=== PATIENT | male | born 1990 | race Caucasian/White ===

== ENCOUNTER 2017-08-11 22:43 | Emergency (ER) | payer OTHER, SELFPAY ==
[2017-08-11 22:44] VITALS: BP 144/68; PULSE 88; RESP 17; TEMP 37.2; O2SAT 99; BMI 25.0
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
[2017-08-11 23:59] LABS: Absolute Lymphocyte Count 1.72 X10^3/ul (0.83-4.51); Absolute Neutrophil Count 3.9 X10^3/uL (2.0-7.7); Basophil# 0.02 X10^3/uL; Basophil% 0.3 % (0-1); Eosinophil# 0.06 X10^3/uL; Hemoglobin 10.2 g/dl (13.0-16.5); Lymphocyte # 1.72 X10^3/ul (4.0); Lymphocyte % 27.6 % (19-41); Mean Corp Hgb Conc 32.9 g/gl (32-36); Mean Corpuscular Hgb 28.2 pg (27.0-32.0); Mean Corpuscular Volume 85.6 fL (80-94); Monocyte# 0.53 X10^3/uL; Monocyte% 8.5 % (0-10); Neutrophil # 3.86 X10^3/uL (2.7-7.7); Platelet Count 200 K/mm3 (150-450); RBC Distribution Width CV 12.1 % (11.6-14.6); RBC Distribution Width SD 36.4 fl (35.1-43.9); Red Blood Count 3.62 M/mm3 (4.6-6.2); White Blood Count 6.2 K/mm3 (4.4-11.0)
[2017-08-12 00:05] LABS: POSITIVE COUNT NO; POSITIVE DIFFERENTIAL NO; POSITIVE MORPHOLOGY NO
[2017-08-12 00:52] VITALS: BP 120/66; PULSE 71; RESP 16; O2SAT 100
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
[2017-08-12 02:29] VITALS: RESP 15
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
[2017-08-12 03:07] VITALS: BP 134/77; PULSE 78; RESP 14; O2SAT 98
--- NOTE | 2017-08-12 03:08 | ED.RN ---
pt educated on discharge instructions. pt verbalizes understanding. pt educated to be seen in sx worsen, or any new sx develop. pt to follow up with dr. remy. iv d/c and covered with 2x2 gauze dressing. pt ambulatory home with mother.
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
== END 2017-08-12 03:14 | disposition home or self-care (01) ==
PROVIDERS: Emergency Provider Emergency Medicine; Family Provider Family Medicine; PCP Family Medicine
DX: S36.892A Contusion of other intra-abdominal organs, initial encounter (principal); S30.1XXA Contusion of abdominal wall, initial encounter; D64.9 Anemia, unspecified; V86.56XA Driver of dirt bike or motor/cross bike injured in nontraffic accident, initial encounter; Y93.9 Activity, unspecified; Y92.9 Unspecified place or not applicable
CPT/HCPCS: 74176; 74177; 85025; 99282; Q9967; A4216